=== PATIENT | male | born 1985 | race Caucasian/White ===

== ENCOUNTER 2021-02-02 15:47 | Emergency (ER) | payer OTHER, SELFPAY ==
--- NOTE | ~2021-02-02 | XR_ITS ---
[XR ribs RT 2V w CXR 2V ] INDICATION: Right rib pain after fall TECHNIQUE: Frontal projection of the upper right ribs, frontal projection of the lower right ribs, ob lique projection of all the right ribs, frontal inspiratory chest x-ray for interpretation. FINDINGS: There are no displaced rib fractures identified. There are no soft tissue abnormality see n. The lungs are clear. IMPRESSION: 1:No displaced rib fractures. Reviewed, dictated and finalized at location A.
[2021-02-02 15:51] VITALS: BP 154/111; PULSE 84; RESP 16; TEMP 35.8; O2SAT 98
--- NOTE | 2021-02-02 16:42 | ED.FALL ---
HPI - Fall General Chief Complaint: Fall Stated Complaint: fall 1 week ago Time Seen by Provider: 02/02/21 15:56 History of Present Illness HPI Narrative: Patient is a 35-year-old male who presents ER with right chest wall pain. Patient reports 1 week ago he was walking on some wet concrete when he slipped and fell on his side/chest. He has had some pain beneath his right pectoralis with a small lump. No difficulty breathing but today he did develop some coughing. No fevers or chills or sweats. Occasionally has an intermittent sharp pain. Otherwise has been taking [id number] pain medication. He did not strike his head or lose consciousness. No additional concerns. Related Data Allergies Allergy/AdvReac Type Severity Reaction Status Date / Time Cephalosporins Allergy Mild Verified 04/11/19 20:42 cefaclor Allergy Unknown Unknown Verified 04/11/19 20:42 Review of Systems Review of Systems: All systems reviewed & are unremarkable except as noted in HPI and below Constitutional: Constitutional: Denies chills, Denies fever(s) and Denies weakness ENT: Denies nasal congestion and Denies sore throat Cardiovascular: Cardiovascular: Reports chest pain, Denies rapid heart rate and Denies radiating jaw, neck or arm pain Respiratory: Respiratory: Reports cough, Denies dyspnea and Denies wheezing Gastrointestinal: Gastrointestinal: Denies nausea and Denies vomiting PMFSH Past Medical History Medical History (Updated 02/02/21 @ 16:54 by Pankaj Oconnell MD) Hyperlipidemia Hypertension Surgical History Surgical History (Updated 02/02/21 @ 16:47 by Pankaj Oconnell MD) History of cholecystectomy Social History Social History (Updated 02/02/21 @ 16:47 by Pankaj Oconnell MD) Smoking status: Never smoker Exam Narrative: Exam Narrative: GENERAL: Well-appearing, well-nourished, and in no acute distress. HEAD: Normocephalic, atraumatic. CHEST: Clear to auscultation. No respiratory distress. Tender palpation right anterior chest wall without bruising. HEART: Regular rate and rhythm. Normal peripheral pulses. EXTREMITIES: Normal range of motion. No edema. SKIN: Warm, dry, no rash. NEURO: Alert and oriented x3. PSYCH: Normal mood and affect. Course Course Emergency Course: Patient informed of results. Discussed treatment plan, patient verbalized understanding, discharge home. Vital Signs Vital signs: Vital Signs Temperature 96.5 F L 02/02/21 15:51 Pulse Rate 84 02/02/21 15:51 Respiratory Rate 16 02/02/21 15:51 Blood Pressure 154/111 H 02/02/21 15:51 Pulse Oximetry 98 02/02/21 15:51 Temperature 96.5 F L 02/02/21 15:51 Pulse Rate 84 02/02/21 15:51 Respiratory Rate 16 02/02/21 15:51 Blood Pressure 154/111 H 02/02/21 15:51 Pulse Oximetry 98 02/02/21 15:51 MDM - Fall Imaging Data Radiologist's impression: ITS Impressions Ribs w/Chest X-Ray 02/02/21 16:41 IMPRESSION: 1:No displaced rib fractures. Discharge Plan Discharge Clinical Impression: Chest wall pain Patient Disposition: Home, Self-Care Condition: Stable Instructions: Chest Wall Pain (ED) Additional Instructions: Return to the ER if you cannot breathe, you cannot keep down food or water, you lose consciousness, you have fever over 100.4 ?F. Alternate Tylenol and ibuprofen for pain. Follow-up/Referrals: Abdirizak,Dionte Alfred MD [Primary Care Provider] - 1 Week
[2021-02-02 17:08] VITALS: BP 141/99; PULSE 82; RESP 18; TEMP 36.6; O2SAT 97
== END 2021-02-02 17:14 | disposition home or self-care (01) ==
PROVIDERS: Emergency Provider Emergency Medicine; PCP Family Medicine
DX: R07.89 Other chest pain (principal); E78.5 Hyperlipidemia, unspecified; I10 Essential (primary) hypertension; W01.0XXA Fall on same level from slipping, tripping and stumbling without subsequent striking against object, initial encounter
CPT/HCPCS: 71046; 71100; 99283

== ENCOUNTER 2023-12-02 10:49 | Emergency (ER) | payer OTHER, SELFPAY ==
--- NOTE | 2023-12-02 10:51 | ED.URI ---
HPI - URI/Sore Throat General Chief Complaint: Upper Respiratory Infection Stated Complaint: Sinus Infection Symptoms Time Seen by Provider: 12/02/23 10:57 Source: patient, RN notes reviewed and old records reviewed Mode of arrival: ambulatory Limitations: no limitations History of Present Illness HPI Narrative: 38-year-old male presents to the [facility] with complaints 8 days ago started with a sore scratchy throat, cough. Has turn into significant sinus pressure. States all other symptoms resolved. Denies any fevers, cough, shortness of breath currently. Onset (ago): day(s) (8) Treatments prior to arrival: cold medicine Related Data Allergies Allergy/AdvReac Type Severity Reaction Status Date / Time Cephalosporins Allergy Mild Unknown Verified 12/02/23 11:05 cefaclor Allergy Unknown Unknown Verified 12/02/23 11:05 Review of Systems Review of Systems: All systems reviewed & are unremarkable except as noted in HPI and below Constitutional: Constitutional: Reports no additional constitutional complaints Eyes: Eyes: Reports no additional eye complaints ENT: Reports as per HPI Cardiovascular: Cardiovascular: Reports no additional cardiovascular complaints, Denies chest pain and Denies dyspnea Respiratory: Respiratory: Reports no additional respiratory complaints, Denies chest congestion, Denies cough and Denies dyspnea Gastrointestinal: Gastrointestinal: Reports no additional gastrointestinal complaints, Denies abdominal pain, Denies nausea and Denies vomiting Musculoskeletal: Musculoskeletal: Reports no additional musculoskeletal complaints Integumentary/Breasts: Skin/Breast: Reports system reviewed and no additional complaints, except as docu Neurologic: Reports system reviewed and no additional complaints, except as documented Psychiatric: Psychiatric: Reports no additional psychiatric complaints Allergic/Immunologic: Allergic/Immunologic: Reports no additional allergic/immunologic complaints [facility] Past Medical History Medical History Hyperlipidemia Hypertension Surgical History Surgical History History of cholecystectomy Family History Family History Father Diabetes mellitus Hypertension Family history of sleep apnea Mother Hypertension Social History Social History Smoking status: Never smoker Comments At the time of my signature, I reviewed and agree with the nursing past medical, surgical, social, and family history. There is no relevant family history pertinent to the patient complaint. Exam Const: General: cooperative, healthy appearing, comfortable, no acute distress, well developed, alert and well nourished Nutritional Appearance: well nourished Orientation/consciousness: patient oriented x3 Limitations: no limitations HENMT: Head: normal to inspection Ears: hearing grossly normal bilaterally, external ears normal, TM's normal bilaterally, EAC's normal, mastoids normal and no periauricular adenopathy Face/Nose/Sinus: Normal external nose present, Normal nares present, Normal nasal mucous membranes and turbinates present, No nasal discharge present, normal facial exam, sinuses nontender and face symmetric Face and sinus: normal facial exam and face symmetric Mouth: Yes Normal oral and palatal mucosa present, Yes lip normal and Yes moist mucous membranes Throat: posterior oropharynx normal, uvula midline, postnasal drainage and no uvular edema Eyes: General: appearance normal, both eyes and all related structures Alignment and Position: alignment normal Periorbital: periorbital findings normal Pupils: Equal, round and reactive pupils present EOM: EOMs intact bilaterally Neck: Neck: normal visual inspection, full ROM, no lymphadenopathy and no meningeal signs Chest:
[2023-12-02 10:57] VITALS: BP 155/107; PULSE 67; RESP 16; TEMP 36.7; O2SAT 97
== END 2023-12-02 11:08 | disposition home or self-care (01) ==
PROVIDERS: Emergency Provider Nurse Practitioner; PCP Family Medicine
DX: J06.9 Acute upper respiratory infection, unspecified (principal); R09.81 Nasal congestion; I10 Essential (primary) hypertension; E78.5 Hyperlipidemia, unspecified
CPT/HCPCS: 99213; G0463